=== PATIENT | female | born 1995 | race Caucasian/White ===

== ENCOUNTER 2016-07-16 14:08 | Emergency (ER) | payer SELFPAY ==
[~2016-07-16] VITALS: Ht 165.1 cm; Wt 58.1 kg
[~2016-07-16 14:08] MED LIST: MEDR5TAB PO
[2016-07-16] MEDS ORDERED: ONDANSETRON ODT 4 MG TAB.RAPDIS PO ONE (14:30)
--- NOTE | 2016-07-16 14:41 | PHYS DOC ---
Text Text See Dr. Cox chart for details. US= No surgical path. Ovarian Cyst- 4.2 cm no evidence of torsion. See formal report when available. Impression: 1. Abdomen Pain 2. Ovarian Cyst 3. UTI 4. Leukocytosis Stay on clear fluid diet only x 48 hrs. No milk or solids. Push fluids. Take Keflex 500 tid x 7 days. Diflucan 100 x 3 days after completed Keflex. Must follow up with primary and review all labs and Xrays. Return if any concerns or persistent pain. (JOSH DO MD) General Chief Complaint: NAUSEA/VOMITING/DIARRHEA Stated Complaint: NAUSEA/VOMITING Time Seen by MD: 14:09 Source: patient Exam Limitations: no limitations Problems: (SRIDHAR COX DO) Time Seen by MD: 19:44 Problems: (JOSH DO MD) History of Present Illness Initial Comments Pt is 21/F to ED requesting test. Pt states for past week she's had some generalized abdominal discomfort, now located right lower quadrant. N/V today can't hold anything down, no measured temps no diarrhea. Pt hoping for positive test today, states she's had difficulty conceiving in past. LMP 06/17/16. Follows at [facility] Timing/Duration: 1 week Severity: mild Modifying Factors: worse with eating Associated Symptoms: nausea/vomiting, other (SRIDHAR COX DO) Allergies: Coded Allergies: vancomycin (Verified Allergy, Severe, 07/16/16) strawberry (Verified Allergy, Intermediate, 07/16/16) Past Medical History Medical History: no pertinent history Surgical History: noncontributory (R elbow) LMP (Females 10-50): 06/17/16 (SRIDHAR COX DO) Family History Significant Family History: no pertinent family hx (SRIDHAR COX DO) Social History Smoker: quit greater than 1 year Alcohol: none Drugs: none (SRIDHAR COX DO) Review of Systems Constitutional: denies chills, denies fever, malaise Respiratory: denies cough, denies shortness of breath Cardiovascular: denies chest pain, denies palpitations Gastrointestinal: see HPI Genitourinary: denies dysuria, denies frequency, denies hematuria Musculoskeletal: denies back pain, denies joint swelling, denies neck pain Psychiatric/Neurological: denies headache, denies numbness, denies paresthesia (SRIDHAR COX DO) Physical Exam General Appearance: WD/WN, no apparent distress Eyes: bilateral eye EOMI, bilateral eye PERRL, bilateral eye normal inspection Ear, Nose, Throat: hearing grossly normal, normal ENT inspection Neck: non-tender, supple Respiratory: normal breath sounds, no respiratory distress Cardiovascular: normal peripheral pulses, regular rate, rhythm Gastrointestinal: other (RLQ TTP with guarding no mass, soft nondistended BS diminished) Rectal: deferred Back: no CVA tenderness, no vertebral tenderness Extremities: non-tender, normal inspection 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 UA with SE contamination, await C/S 1538: Pt will require CT evaluation r/o appy, will have prolonged ED course. CT reveals 4.7cm L ovarian cyst. Pt still in pain, nausea controlled. Will check US r/o torsion. (SRIDHAR COX DO) Departure Diagnosis: tobaccoism Patient Instructions: Smoking Cessation, Tips For Success Additional Instructions: Stop smoking, seek medical assistance if necessary. SRIDHAR COX DO Jul 16, 2016 14:41 JOSH DO MD Jul 17, 2016 20:33
[2016-07-16 15:14] LABS: BILIRUBIN,URINE NEG (NEG); CLARITY,URINE CLOUDY; COLOR,URINE YELLOW; GLUCOSE,URINE NEG (NEG); NITRITE,URINE NEG (NEG); UROBILINOGEN,URINE 0.2 mg/dL (0.2 mg/dL)
[2016-07-16 15:15] LABS: BACTERIA,URINE FEW /HPF (0-FEW); SQUAMOUS EPITHELIAL CELL,UR MANY /LPF
[2016-07-16] MEDS ORDERED: IV NORMAL SALINE 1,000ML 1,000 ML IV SCH (15:31)
[2016-07-16] MEDS ORDERED: CEFOXITIN SODIUM 1 GM VIAL IV ONE (15:42)
[2016-07-16] MEDS ORDERED: IV NORMAL SALINE 50ML 50 ML ONE (15:42)
[2016-07-16] MEDS: FENTANYL PF 100 MCG/2 ML VIAL. IV PRN ×2 (15:47→16:35)
[2016-07-16 15:54] LABS: BASO % 0 % (0-3); EOS # 0.1 x10^3/uL (0.0-0.7); EOS % 0 % (0-3); HEMATOCRIT 42.6 % (36.0-47.0); HEMOGLOBIN 14.2 g/dL (12.0-15.5); LYMPH # 1.4 x10^3/uL (1.0-4.8); LYMPH % 11 % (24-48); MEAN CORPUSCULAR HEMOGLOBIN 29 pg (25-35); MEAN CORPUSCULAR HGB CONC 33 g/dL (31-37); MEAN CORPUSCULAR VOLUME 89 fL (79-100); MONO % 8 % (0-9); NEUT # 10.7 x10^3uL (1.8-7.7); NEUT % 81 % (31-73); PLATELET COUNT 211 x10^3/uL (140-400); RED BLOOD COUNT 4.81 x10^6/uL (3.50-5.40); RED CELL DISTRIBUTION WIDTH 13.2 % (11.5-14.5); WHITE BLOOD COUNT 13.2 x10^3/uL (4.0-11.0)
[2016-07-16] MEDS ORDERED: NORMAL SALINE IV SCH (16:00)
[2016-07-16] MEDS ORDERED: ONDANSETRON PF 4 MG/2 ML VIAL. IV ONE (16:00)
[2016-07-16] MEDS ORDERED: CEFOXITIN SODIUM IV SCH (16:00)
[2016-07-16] MEDS ORDERED: KETOROLAC 30 MG/ML VIAL. IV ONE (16:00)
[2016-07-16 16:05] LABS: ALBUMIN 3.8 g/dL (3.4-5.0); ALBUMIN/GLOBULIN RATIO 1.1 (1.0-1.7); CALCIUM 8.5 mg/dL (8.5-10.1); CREATININE 0.7 mg/dL (0.6-1.0); GFR 105.6; POTASSIUM 3.9 mmol/L (3.5-5.1); TOTAL BILIRUBIN 0.7 mg/dL (0.2-1.0); TOTAL PROTEIN 7.3 g/dL (6.4-8.2)
[2016-07-16] MEDS ORDERED: IOHEXOL 300 MG/ML 75 ML VIAL. IV ONE (16:15)
--- NOTE | 2016-07-16 16:47 | RAD ---
CT abdomen and pelvis with IV contrast History: Right lower quadrant pain with rebound. Comparison: None. Technique: After administration of intravenous contrast, 75 mL Omnipaque 300, helical CT of the abdomen and pelvis was performed from the lung bases through the ischial tuberosities. Axial, sagittal, and coronal reconstructions were obtained. One or more of the following individualized dose reduction techniques were utilized for the study: Automated exposure control Adjustment of mA and/or kV according to patient's size Use of iterative reconstruction technique. Findings: Evaluation of enteric structures may be limited by lack of oral contrast. Liver, spleen, pancreas, gallbladder, and bilateral adrenal glands are unremarkable. Bilateral kidneys enhance symmetrically. There is no evidence of bowel obstruction. No free air or free fluid is identified in the abdomen or pelvis. Appendix appears within normal limits. Urinary bladder is unremarkable. Uterus and right adnexa are unremarkable. The left ovary demonstrates 4.7 cm cyst. Impression: 1. No evidence of appendicitis. No acute inflammatory process identified in the abdomen or pelvis. 2. Left ovary demonstrates 4.7 cm cyst. If there is concern for torsion, ultrasound could be performed.
--- NOTE | 2016-07-16 18:57 | RAD ---
PROCEDURE Limited left pelvic ultrasound 07/16/2016 HISTORY Left pelvic pain. TECHNIQUE A real-time ultrasound examination of the left ovary using the distended urinary bladder as a sonographic window was performed. Multiple images were obtained. The patient refused transvaginal imaging. FINDINGS The left ovary is mildly enlarged. It measures 5.5 x 5.6 x 4.4 centimeters in size. A 4.2 centimeter cyst is seen involving the left ovary. Normal color flow and pulse Doppler imaging to the left ovary is seen. There is no evidence of torsion. No free fluid is noted. IMPRESSION 4.2 centimeter cyst is seen involving left ovary. There is no sonographic evidence of torsion. Electronically signed by: Humberto Champion MD (Jul 16, 2016 18:56:32)
[2016-07-16 18:58] VITALS: BP 95/67
[2016-07-16] MEDS ORDERED: SULF1TAB24 PO (19:45)
[2016-07-16] MEDS ORDERED: HYDR-79 PO (19:46)
[2016-07-16] MEDS ORDERED: FLUC100T7 PO (19:57)
[2016-07-16] MEDS ORDERED: FLUCONAZOLE 100 MG TABLET. PO ONE (20:15)
== END 2016-07-16 20:11 | disposition home or self-care (01) ==
LOC: ER 14:08
DX: R10.84 Generalized abdominal pain (principal); R11.2 Nausea with vomiting, unspecified; N39.0 Urinary tract infection, site not specified; D72.829 Elevated white blood cell count, unspecified; N83.209 Unspecified ovarian cyst, unspecified side; R53.81 Other malaise; Z87.891 Personal history of nicotine dependence; Z88.1 Allergy status to other antibiotic agents; Z91.018 Allergy to other foods
CPT/HCPCS: 36415; 74177; 76857; 80053; 81001; 83690; 84703; 85027; 87086; 96365; 96375; 96376; 99285; J0694; J1885; J2405; J3010; Q0162; Q9967; 81025; J7030

== ENCOUNTER 2018-07-22 16:09 | Emergency (ER) | payer OTHER ==
[~2018-07-22] VITALS: Ht 160 cm; Wt 57.2 kg
[~2018-07-22 16:09] MED LIST changes: +FLUC100T7 PO; +HYDR-1179 PO; +SULF1TAB24 PO
[2018-07-22] MEDS ORDERED: DEXAMETHASONE SOD PHOS 10 MG/ML VIAL PO ONE (16:45)
[2018-07-22] MEDS ORDERED: KETOROLAC 60 MG/2 ML VIAL. IM ONE (16:45)
[2018-07-22] MEDS ORDERED: PENICILLIN G BENZATHINE LA 1,200,000 UNIT/2 ML DISP.SYRIN. IM ONE (16:45)
[2018-07-22] MEDS ORDERED: IBUP600T16 PO (16:47)
--- NOTE | 2018-07-22 16:47 | PHYS DOC ---
Past History Past Medical History: Anxiety, Depression, Hypothyroid Past Surgical History: Other Smoking: Non-smoker Alcohol Use: None Drug Use: None Adult General Chief Complaint Chief Complaint: FLU SYMPTOM HPI HPI Patient is a 23 year old female who presents with sore throat and body aches. Patient states that she awoke with throat irritation this morning but no other symptoms. She states she went to work. Within the last few hours patient states that she has developed severe chills, body aches, worsening sore throat, and lightheadedness. No known sick contacts. Denies any associated shortness of breath or cough. Due to worsening symptoms came to the emergency department for further evaluation. Has not taken any medications to help with her symptoms. Has noticed swollen glands underneath her jaw which are painful when touched. Review of Systems Review of Systems Constitutional: Fever, chills[] Eyes: Denies change in visual acuity, redness, or eye pain [] HENT: Sore throat, swollen glands[] Respiratory: Denies cough or shortness of breath [] Cardiovascular: Denies chest pain or edema[] GI: Nausea, denies abdominal pain, vomiting, bloody stools or diarrhea [] : Denies dysuria or hematuria [] Musculoskeletal: Myalgias[] Integument: Denies rash or skin lesions [] Neurologic: Headache, denies focal weakness or sensory changes [] All other systems were reviewed and found to be within normal limits, except as documented in this note. Current Medications Current Medications Current Medications Medications (Trade) Dose Ordered Sig/[facility] Start Time Stop Time Status Last Admin Dose Admin Dexamethasone Sodium Phosphate (Decadron) 8 mg 1X ONCE 07/22/18 16:45 07/22/18 16:46 Ketorolac Tromethamine (Toradol Im) 60 mg 1X ONCE 07/22/18 16:45 07/22/18 16:46 Penicillin G Benzathine (Bicillin L-A) 1,200,000 unit 1X ONCE 07/22/18 16:45 07/22/18 16:46 Allergies Allergies Allergies Coded Allergies Type Severity Reaction Last Updated Verified vancomycin Allergy Severe 07/16/16 Yes strawberry Allergy Intermediate 07/16/16 Yes Physical Exam Physical Exam Constitutional: Alert, vital signs stable, appears ill. [] HENT: Normocephalic, atraumatic, bilateral external ears normal, oropharynx erythematous, bilateral tonsils 1+ with exudates present, soft palate petechial hemorrhages present, nose normal. [] Eyes: PERRLA, EOMI, conjunctiva normal, no discharge. [] Neck: Normal range of motion, tender anterior cervical lymphadenopathy, supple, no stridor. [] Cardiovascular: Tachycardiac, regular rhythm, no murmur [] Lungs & Thorax: Bilateral breath sounds clear to auscultation [] Abdomen: Bowel sounds normal, soft, no tenderness, no masses, no pulsatile masses. [] Skin: Warm, dry, no erythema, no rash. [] Back: No tenderness, no CVA tenderness. [] Extremities: No tenderness, no cyanosis, no clubbing, ROM intact, no edema. [] Neurologic: Alert and oriented X 3, normal motor function, normal sensory function, no focal deficits noted. [] Current Patient Data Vital Signs Vital Signs Date Time Temp Pulse Resp B/P (MAP) Pulse Ox O2 Delivery O2 Flow Rate FiO2 07/22/18 16:28 99.0 106 18 100 Room Air Lab Results Laboratory Tests Test 07/22/18 16:33 Influenza Type A (Rapid) Negative Influenza Type B (Rapid) Negative Group A Streptococcus Rapid Positive Current Medications Medications (Trade) Dose Ordered Sig/[facility] Route PRN Reason Start Time Stop Time Status Last Admin Dose Admin Penicillin G Benzathine (Bicillin L-A) 1,200,000 unit 1X ONCE IM 07/22/18 16:45 07/22/18 16:46 DC 07/22/18 16:51 Ketorolac Tromethamine (Toradol Im) 60 mg 1X ONCE IM 07/22/18 16:45 07/22/18 16:46 DC 07/22/18 16:52 Dexamethasone Sodium Phosphate (Decadron) 8 mg 1X ONCE PO 07/22/18 16:45 07/22/18 16:46 DC 07/22/18 16:45 EKG EKG Not performed[] Radiology/Procedures Radiology/Procedures Not performed[] Course & Med Decision Making Course & Med Decision Making Pertinent Labs and Imaging studies reviewed. (See chart for details) Rapid strep test was found to be positive in the emergency department. Patient has elected to receive Bicillin LA which was given in the emergency department. Patient given by mouth Decadron to help with throat pain and given IM Toradol for treatment of body aches. Advised patient to continue on Tylenol and ibuprofen for continued symptomatic treatment. Also recommended warm fluids and rest. Advised follow-up with primary doctor in the next 5 days if symptoms are not improving and return to the emergency department for any worsening symptoms. Patient was understanding and in agreement with treatment plan.[] Dragon Disclaimer Dragon Disclaimer This electronic medical record was generated, in whole or in part, using a voice recognition dictation system. Departure Departure: Impression: Primary Impression: Strep pharyngitis Disposition: HOME, SELF-CARE Condition: IMPROVED Referrals: JAVI COLEMAN (PCP) Patient Instructions: Strep Throat Additional Instructions: Continue treatment of symptoms at home with Tylenol and ibuprofen. You may also treat sore throat symptoms with warm saltwater gargle as needed. Be sure to drink plenty of fluids and rest until your symptoms have resolved. Follow- up with your primary doctor in 5 days if you have not noted any improvement in your symptoms. Return to the emergency department for any worsening symptoms. Scripts Ibuprofen (IBUPROFEN) 600 Mg Tablet 600 MG PO Q6HRS, #30 TAB May also use for body aches and pain Prov: FOZIA GRANT MD 07/22/18 FOZIA GRANT MD Jul 22, 2018 16:47
[2018-07-22 16:55] LABS: INFLUENZA A PATIENT NEGATIVE (NEGATIVE); INFLUENZA B PATIENT NEGATIVE (NEGATIVE)
[2018-07-22 17:17] VITALS: BP 109/58
== END 2018-07-22 17:21 | disposition home or self-care (01) ==
LOC: ER 16:09
DX: J02.0 Streptococcal pharyngitis (principal); B95.0 Streptococcus, group A, as the cause of diseases classified elsewhere; M79.10 Myalgia, unspecified site; F41.9 Anxiety disorder, unspecified; F32.9 Major depressive disorder, single episode, unspecified; E03.9 Hypothyroidism, unspecified; Z88.1 Allergy status to other antibiotic agents; Z91.018 Allergy to other foods
CPT/HCPCS: 87804; 87880; 96372; 99283; J0561; J1100; J1885